=== PATIENT | male | born 1995 | race Two or more races ===

== ENCOUNTER 2018-02-11 16:39 | Emergency (ER) | payer SELFPAY ==
[2018-02-11 17:20] VITALS: BP 127/75
--- NOTE | 2018-02-11 17:53 | UC ---
Abdominal Pain Male HPI - HPI Summary HPI Summary: Pt is accompanied by friend/hourly sign language interpreter. Pt c/o sudden onset of nausea and vomiting on 02/07/18. Pt states he has supra pubic discomfort, and low back pain. Pt states that he is hungry and eats but then begins to feel nauseous, then vomits what he has eaten. Pt is able to drink fluids without nausea. Denies, diarrhea, fever, chills, dysuria, or RLQ pain. - History of Current Complaint Hx Obtained From: Regional Education Coordinator Onset/Duration: Sudden Onset, Lasting Days, Still Present Severity Initially: Mild Severity Currently: Moderate Pain Intensity: 8 Location: Suprapubic Radiates: No Character: Colicy Aggravating Factor(s): Food Alleviating Factor(s): Other - NPO Associated Signs And Symptoms: Positive: Back Pain, Decreased Appetite, Vomiting - Risk Factors Cardiac Risk Factors: Negative <Raina Marcial NP - Last Filed: 02/11/18 17:55> <Alverto Copeland - Last Filed: 02/11/18 18:34> - History of Current Complaint Chief Complaint: UCGI Stated Complaint: UPSET STOMACH, VOMITING Time Seen by Provider: 02/11/18 17:27 - Allergies/Home Medications Allergies/Adverse Reactions: Allergies Allergy/AdvReac Type Severity Reaction Status Date / Time No Known Allergies Allergy Verified 02/11/18 17:10 PMH/Surg Hx/FS Hx/Imm Hx Previously Healthy: Yes - Surgical History Surgical History: None - Family History Known Family History: Positive: Cardiac Disease - Social History Occupation: Employed Full-time Lives: With Family Alcohol Use: None Substance Use Type: None Smoking Status (MU): Never Smoked Tobacco Have You Smoked in the Last Year: No <Raina Marcial NP Last Filed: 02/11/18 17:55> Review of Systems Constitutional: Negative Skin: Negative Eyes: Negative ENT: Negative Respiratory: Negative Cardiovascular: Negative Gastrointestinal: Vomiting, Nausea Genitourinary: Negative Motor: Negative Neurovascular: Negative Musculoskeletal: Negative Neurological: Negative Psychological: Negative Is Patient Immunocompromised?: No All Other Systems Reviewed And Are Negative: Yes <Raina Marcial NP Last Filed: 02/11/18 17:55> Physical Exam Triage Information Reviewed: Yes Appearance: Well-Appearing Vital Signs: Initial Vital Signs Temp 99.1 F 02/11/18 17:10 Pulse 68 02/11/18 17:10 Resp 16 02/11/18 17:10 BP 127/75 02/11/18 17:10 Pulse Ox 100 02/11/18 17:10 Vital Signs Reviewed: Yes Eye Exam: Normal ENT Exam: Normal Dental Exam: Normal Neck exam: Normal Respiratory Exam: Normal Cardiovascular Exam: Normal Abdominal Exam: Other Abdomen Description: Positive: Other: - suprpubic tenderness Bowel Sounds: Positive: Present Musculoskeletal Exam: Normal Neurological Exam: Normal Psychological Exam: Normal Skin Exam: Normal <Raina Marcial NP Last Filed: 02/11/18 17:55> Vital Signs: Initial Vital Signs Temp 99.1 F 02/11/18 17:10 Pulse 68 02/11/18 17:10 Resp 16 02/11/18 17:10 BP 127/75 02/11/18 17:10 Pulse Ox 100 02/11/18 17:10 <Alverto Copeland - Last Filed: 02/11/18 18:34> Abd Pain Male Course/Dx - Differential Dx/Clinical Impression Differential Diagnosis/HQI/PQRI: Appendicitis, Diverticulitis, Urinary Tract Infection, Other - nausea and vomiting Provider Diagnoses: nausea and vomiting. gastroenteritis. low back pain <Raina Marcial NP Last Filed: 02/11/18 17:55> Discharge - Sign-Out/Discharge Documenting (check all that apply): Discharge/Admit/Transfer - Billing Disposition and Condition Condition: STABLE Disposition: Home <Raina Marcial NP Last Filed: 02/11/18 17:55> - Billing Disposition and Condition Condition: STABLE Disposition: Home <Alverto Copeland - Last Filed: 02/11/18 18:34> - Discharge Plan Condition: Stable Disposition: HOME Prescriptions: Ondansetron ODT TAB* [Zofran 4 MG Odt TAB*] 4 mg PO Q6H PRN #20 tab.odt PRN Reason: Nausea Patient Education Materials: Acute Nausea and Vomiting (ED), Back Pain (ED), Lower Back Exercises (ED) Print Language: TELUGU Ref[place]: [facility] [Outside] No Primary Care Phys,NOPCP [Primary Care Provider] - Additional Instructions: Per institutional requirements, I have reviewed the chart, however, I was not consulted specifically or made aware of this patient by the above midlevel provider. I did not personally evaluate, interact with , or disposition this patient.
== END 2018-02-11 17:59 | disposition home or self-care (01) ==
LOC: UCCORT 16:39
DX: K52.9 Noninfective gastroenteritis and colitis, unspecified (principal); M54.5 Low back pain
CPT/HCPCS: 81003; 99202; G0463